=== PATIENT | female | born 1990 | race Caucasian/White ===

== ENCOUNTER 2016-04-05 19:16 | Inpatient (IN) | payer MEDICAID ==
[~2016-04-05] VITALS: Ht 165.1 cm; Wt 80.3 kg
[~2016-04-05 19:16] MED LIST: FERROUS SULFAT325 MG PO; IBUPROFEN600 MG PO; PERCODAN TABLET1 TAB PO; PRENATAL COMPLE1 TAB PO
[2016-04-05 19:40] LABS: APPEARANCE HAZY (CLEAR); BACTERIA FEW /hpf (NONE SEEN); BILIRUBIN NEGATIVE (NEGATIVE); COLOR YELLOW (YELLOW); GLUCOSE 50 mg/dL (NEGATIVE); KETONE NEGATIVE (NEGATIVE); LEUKOCYTE ESTERASE TRACE (NEGATIVE); MUCUS <1+ /lpf (NONE SEEN); NITRITE NEGATIVE (NEGATIVE); PROTEIN NEGATIVE (NEGATIVE); RED CELLS - URINE 25-50 /hpf (0-5); SPECIFIC GRAVITY 1.015 (1.005-1.020); UROBILINOGEN NORMAL (NORMAL)
[2016-04-05 20:03] LABS: HEMATOCRIT 35.1 % (36.0-48.0); HEMOGLOBIN 11.8 g/dL (12-16); MCH 30.4 pg (26.0-34.0); MCHC 33.6 g/dL (31.0-37.0); MCV 90.5 fL (80.0-100.0); MEAN PLATELET VOLUME 11.6 fL (7.4-10.4); RBC 3.88 10x6/uL (4.00-5.40); RDW 12.7 % (11.5-14.5)
[2016-04-05] MEDS ORDERED: PRENATAL COMPLE1 TAB PO (20:04)
[2016-04-05 20:05] VITALS: BP 116/76; Ht 165.1 cm; Wt 80.3 kg
[2016-04-06 03:46] VITALS: BP 99/61
--- NOTE | 2016-04-06 04:05 | NUR ---
PT AMBULATED FROM L&D 1277 TO L&D 1273 TO CONT PP CARE. SEE [facility] FOR PREVIOUS INTRAPARTUM AND POST CHARTING. PT AMBULATED WITHOUT ASSISTANCE. PT POSITIONED IN BED FOR COMFORT. ADDITIONAL POST SUPPLIES PROVIDED TO PT. FOOD PROVIDED TO PT AT THIS TIME BY FAMILY. PT DENIES ANY NEEDS. LINENS PROVIDED TO PT SO FOR NIGHT. BED IN LOW POSITION, SIDE RAILS UP TIMES 2, CALL LIGHT AND PHONE IN REACH. WILL CONT TO MONITOR PT STATUS.
--- NOTE | 2016-04-06 06:21 | NUR ---
RN TO PT BS FOR ROUNDS. PT AMBULATING IN ROOM IN NO ACUTE DISTRESS. PT DENIES ANY NEEDS AT THIS TIME. BED IN LOW POSITION, SIDE RAILS UP TIMES 2, CALL LIGHT AND PHONE IN REACH. SO AT PT BS FOR SUPPORT AND ASSISTANCE. INFANT AT PT BS FOR COUPLET CARE. WILL CONT TO MONITOR PT STATUS AND GIVE REPORT TO AM SHIFT.
[2016-04-06 07:09] VITALS: BP 92/51
--- NOTE | 2016-04-06 07:10 | NUR ---
RECEIVED PT LYING TO LEFT SIDE IN BED. WAKES UPON ENTERING ROOM. AAO X 4. VSS. HRRR WITHOUT AUDIBLE MURMUR. BBS CLEAR. BS X 4. ABDOMEN SOFT. FUNDUS FIRM AT U/1. RUBRA LOCHIA SMALL AMT. PT STATES PASSING FEW SMALL CLOTS. DENIES HEAVY BLEEDING. PERINEUM WITH SLIGHT EDEMA NOTED. NEG HOMANS' SIGN. PPP. NO EDEMA NOTED TO BLE. SL TO RIGHT FOREARM. SITE CLEAR. PT C/O NON-PRODUCTIVE COUGH AND SINUS CONGESTION X 1 WEEK. STATES HASN'T TAKEN MEDICATION FOR IT. C/O BACK PAIN OF "7" ON 0-10 PAIN SCALE. REQUESTS AND RECEIVES APPLE JUICE. SR UP X2. CALL LIGHT IN REACH.
--- NOTE | 2016-04-06 08:10 | NUR ---
PT SITTING UP IN BED. INFANT. STATES PAIN NOW "3-4" ON 0-10 PAIN SCALE. DENIES NEEDS OR C/O.
--- NOTE | 2016-04-06 09:15 | NUR ---
PT SITTING UP IN BED. CARING FOR INFANT. DENIES NEEDS OR C/O.
--- NOTE | 2016-04-06 10:30 | NUR ---
PT SITTING UP IN BED. VISITS WITH SO. DENIES NEEDS OR C/O.
--- NOTE | 2016-04-06 11:02 | NUR ---
PT C/O ABDOMINAL CRAMPING AND PAIN TO CHEST OF "7" ON 0-10 PAIN SCALE. MOTRIN 600 MG GIVEN PO ORDERED.
--- NOTE | 2016-04-06 11:36 | NUR ---
PT C/O ABDOMINAL CRAMPING OF "8" ON 0-10 PAIN SCALE. PERCOCET 10/325 GIVEN PO ORDERED.
--- NOTE | 2016-04-06 12:20 | NUR ---
PT SITTING UP IN BED CARING FOR AND VISITS WITH FAMILY. DENIES NEEDS OR C/O.
--- NOTE | 2016-04-06 13:00 | NUR ---
DR FONTANA ON UNIT. VISITS WITH PT.
[2016-04-06 14:00] LABS: BASOPHILS 0.2 % (0.0-2.0); EOSINOPHILS 1.6 % (0-7); HEMATOCRIT 32.9 % (36.0-48.0); HEMOGLOBIN 10.9 g/dL (12-16); IMMATURE GRANULOCYTES 0.5 % (0-5); LYMPHOCYTES 19.2 % (15-50); MCH 30.1 pg (26.0-34.0); MCHC 33.1 g/dL (31.0-37.0); MCV 90.9 fL (80.0-100.0); MEAN PLATELET VOLUME 11.7 fL (7.4-10.4); MONOCYTES 9.5 % (2-11); PLATELET COUNT 147 10x3/uL (130-400); RBC 3.62 10x6/uL (4.00-5.40); RDW 12.8 % (11.5-14.5); WBC 16.3 10x3/uL (4.8-10.8)
--- NOTE | 2016-04-06 14:30 | NUR ---
PT SITTING UP ON SIDE OF BED. STATES WILL TAKE A NAP WHILE IN NSY. DENIES NEEDS OR C/O.
--- NOTE | 2016-04-06 16:26 | NUR ---
PT LYING SUPINE IN BED. EYES CLOSED. RESP NON-LABORED. PT NOT DISTURBED TO ALLOW FOR REST. SR UPX 2. CALL LIGHT IN REACH. SO IN ROOM WITH PT.
--- NOTE | 2016-04-06 16:55 | NUR ---
PT SITTING UP IN BED. INFANT. ROBITUSSIN 10 ML AND BENADRYL 25 MG GIVEN PO ORDERED FOR PT C/O SINUS CONGESTION AND COUGH. PT INSTRUCTED ON MEDS. VERBALIZES UNDERSTANDING.
--- NOTE | 2016-04-06 17:29 | NUR ---
PT C/O ABDOMINAL CRAMPING OF "8" ON 0-10 PAIN SCALE. PERCOCET 10/325 GIVEN PO ORDERED. PT INSTRUCTED ON MED. VERBALIZES UNDERSTANDING.
--- NOTE | 2016-04-06 17:32 | NUR ---
PT REQUESTING IBUPROFEN WITH PERCOCET. IBUPROFEN 600 MG GIVEN PO ORDERED.
--- NOTE | 2016-04-06 18:45 | NUR ---
PT AMBULATORY IN HALLS.
--- NOTE | 2016-04-06 19:10 | NUR ---
RN TO PT BS FOR EDDIE. PT NOT CURRENTLY IN ROOM. WILL CONT TO MONITOR AND PERFORM DEDIE WHEN PT RETURNS.
[2016-04-06 19:39] VITALS: BP 114/63
--- NOTE | 2016-04-06 19:54 | NUR ---
RN RETURNS TO PT BS FOR EDDIE. PT SITTING IN BED IN NO ACUTE DISTRESS. PT IS A 25YO [id number] WITH OF VIABLE MALE THIS MORNING @ 0129 @ 39 WKS GESTATION. PT WITH NO LACERATIONS OR EPIS. AAOX3. HR REGULAR. LUNGS CTAB. ABDOMEN SOFT AND NON TENDER. PT STATES SHE HAS PASSED GAS SINCE BUT HAS NOT HAD A BM. PT DENIES DIFFICULTY VOIDING. FUNDUS FIRM AND ML @ U/-2. LOCHIA RUBRA SCANT. PERINIUM APPEARS TO BE INTACT WITH NO SWELLING NOTED. MIKEL PAD AND PANTIES IN PLACE. NO SWELLING NOTED TO UPPER OR LOWER EXTREMITIES BILATERALLY. NO IV ACCESS. PT C/O PAIN RATES 3/10, CRAMPING. PAIN MEDICATION SCHEDULE REVIEWED WITH PT AT THIS TIME. QUESTIONS ANSWERED. FRESH WATER MUG PROVIDED. PT DENIES ANY FURTHER NEEDS AT THIS TIME. BED IN LOW POSITION, SIDE RAILS UP TIMES 2, CALL LIGHT AND PHONE IN REACH. VISITOR AT PT BS TIMES 1. INFANT REMAINS AT PT BS FOR COUPLET CARE. WILL CONT TO MONITOR PT STATUS.
--- NOTE | 2016-04-06 20:46 | NUR ---
PT AMBULATING IN [place] AT THIS TIME IN NO ACUTE DISTRESS. PT SO AT SIDE. PT DENIES ANY NEES.
--- NOTE | 2016-04-06 21:23 | NUR ---
RN TO PT BS. PT AMBULATING IN ROOM IN NO ACUTE DISTRESS. 2100 DOSE OF MILK OF MAGNESIA PROVIDED. PT C/O PAIN, RATES 11/11, REQUESTS MEDICATION. 1 TAB PERCOCET PROVIDED AT THIS TIME WITH REQUESTED COFFEE. PT DENIES ANY FURTHER NEEDS. BED IN LOW POSITION, SIDE RAILS UP TIMES 2, CALL LIGHT AND PHONE IN REACH. WILL CONT TO MONITOR PT STATUS.
--- NOTE | 2016-04-07 01:19 | NUR ---
RN TO PT BS FOR ROUNDS. PT RESTING IN BED IN RIGHT LATERAL POSITION, WITH EYES CLOSED, IN NO ACUTE DISTRESS. RESPIRATIONS EVEN AND UNLABORED. BED IN LOW POSITION, SIDE RAILS UP TIMES 2, CALL LIGHT AND PHONE IN REACH. SO REMAINS AT PT BS FOR SUPPORT AND ASSISTANCE. WILL CONT TO MONITOR PT STATUS.
--- NOTE | 2016-04-07 02:07 | NUR ---
RN CALLED TO PT BS. PT C/O PAIN, RATES 11/11, REQUESTS MEDICATION. PT PROVIDED WITH 1 TAB PERCOCET 10 AND 1 TAB IBUPROFEN AT THIS TIME. PT DENIES ANY FURTHER NEEDS. BED IN LOW POSITION, SIDE RAILS UP TIMES 2, CALL LIGHT AND PHONE IN REACH. SO REMAINS AT PT BS FOR SUPPORT AND ASSISTANCE. INFANT REMAINS WITH MOTHER . WILL CONT TO MONITOR PT STATUS.
--- NOTE | 2016-04-07 03:44 | NUR ---
RN TO PT BS FOR ROUNDS. PT RESTING IN BED IN SEMI-FOWLERS POSITION, WITH EYES CLOSED, IN NO ACUTE DISTRESS, HOLDING . MOTHER WOKEN UP AND INFANT REMOVED FROM PT'S ARMS. POC DISCUSSED WITH PT, INFANT SWADDLED AND RETURNED TO OPEN CRIB. TRANSPORTED TO NURSERY FOR OBSERVATION TO ALLOW PT TO REST. PT DENIES ANY FURTHER NEEDS AT THIS TIME. BED IN LOW POSITION, SIDE RAILS UP TIMES 2, CALL LIGHT AND PHONE IN REACH. SO REMAINS AT PT BS FOR SUPPORT AND ASSISTANCE. WILL CONT TO MONITOR PT STATUS.
--- NOTE | 2016-04-07 05:38 | NUR ---
RN CALLED TO PT BS. PT RESTING IN BED IN NO ACUTE DISTRESS. PT REQUESTS FRESH ORANGE JUICE, PROVIDED AT THIS TIME. PT DENIES ANY FURTHER NEEDS. BED IN LOW POSITION, SIDE RAILS UP TIMES 2, CALL LIGHT AND PHONE IN REACH. SO REMAINS AT PT BS FOR SUPPORT AND ASSISTANCE. REMAINS AT PT BS FOR COUPLET CARE. WILL CONT TO MONITOR PT STATUS.
--- NOTE | 2016-04-07 06:13 | NUR ---
RN CALLED TO PT BS. PT C/O PAIN, RATES 10/11, REQUESTS MEDICATION. 1 TAB PERCOCET 10 PROVIDED AT THIS TIME. PT RESTING IN BED IN NO ACUTE DISTRESS. PT DENIES ANY FURTHER NEEDS AT THIS TIME. BED IN LOW POSITION, SIDE RAILS UP TIMES 2, CALL LIGHT AND PHONE IN REACH. SO REMAINS AT PT BS FOR SUPPORT AND ASSISTANCE. WILL CONT TO MONITOR PT STATUS.
[2016-04-07 07:19] VITALS: BP 99/60
[2016-04-07 07:24] LABS: RAPID PLASMA REAGIN Non Reactive (Non Reactive)
--- NOTE | 2016-04-07 07:29 | NUR ---
ASSESSMENT DONE. SITTING UP IN BED. INFANT IN ROOM. STATES THAT SHE IS UP TO BATHROOM NEEDED. FAMILY AT BEDSIDE. NOTED SOME WHEEZING BUT IMPROVES WHEN COUGHS. STATES IS SMOKER BUT HAS NOT SMOKED SINCE ARRIVAL TO UNIT. NO REQUESTS.
[2016-04-07] MEDS ORDERED: IBUPROFEN600 MG PO (08:25)
[2016-04-07] MEDS ORDERED: PERCOCET 5-3251 TAB PO (08:26)
--- NOTE | 2016-04-07 09:30 | NUR ---
AMBULATING IN HALLWAY.
--- NOTE | 2016-04-07 10:50 | NUR ---
REPORT TO Seda VARGHESE RN.
--- NOTE | 2016-04-07 11:10 | NUR ---
DISCHARGE INST VERBAL AND WRITTEN GIVEN PER Seda VARGHESE RN.
--- NOTE | 2016-04-07 12:48 | NUR ---
discharged to home with infant. to auto via w/c without incident
== END 2016-04-07 12:30 | disposition home or self-care (01) | DRG 775 ==
LOC: D.LD 19:16
PROVIDERS: ADMIT Specialist
PROC: 10E0XZZ Delivery of Products of Conception, External Approach (ICD-10-PCS; principal; 2016-04-06)
DX: O99.334 Smoking (tobacco) complicating childbirth (principal); Z3A.39 39 weeks gestation of pregnancy; Z37.0 Single live birth; O09.33 Supervision of pregnancy with insufficient antenatal care, third trimester; O99.213 Obesity complicating pregnancy, third trimester; O69.81X0 Labor and delivery complicated by cord around neck, without compression, not applicable or unspecified